=== PATIENT | male | born 1990 | race African-American/Black ===

== ENCOUNTER 2018-12-30 01:45 | Emergency (ER) | payer OTHER ==
[~2018-12-30] VITALS: Ht 182.9 cm; Wt 127.0 kg
[2018-12-30 03:31] VITALS: BP 134/69
== END 2018-12-30 04:09 | disposition home or self-care (01) ==
LOC: ER 01:45
DX: S01.112A Laceration without foreign body of left eyelid and periocular area, initial encounter (principal); F17.210 Nicotine dependence, cigarettes, uncomplicated; Y04.2XXA Assault by strike against or bumped into by another person, initial encounter; Y92.89 Other specified places as the place of occurrence of the external cause; Y93.89 Activity, other specified; Y99.8 Other external cause status